=== PATIENT | female | born 1955 | race Caucasian/White ===

== ENCOUNTER 2018-07-16 08:09 | Day surgery (SDC) ==
[~2018-07-16 08:09] MED LIST: BRIMONIDINE TARTRATE 0.2% OPTH SOL OP PRN; BSS WITH EPINEPHRINE OP ONE; DEX-MOXI-KETOR OPTH INJ 1/0.5/0.4 MG/ML IO ONE; LIDOCAINE 1% 20 ML MDV ID STA; LIDOCAINE 1%/PHENYLEPHRINE 1.5% BSS (SURGERY) INTRAOCULA ONE; ZOFRAN 4 MG/2 ML IVP ONE
[2018-07-16] MEDS: CYCLOGYL 2% OPTH OP PRN ×3 (08:30→08:40)
[2018-07-16] MEDS: BETADINE OPTH PREP OP PRN ×2 (08:30→08:54)
[2018-07-16] MEDS: TETRACAINE 0.5% UNIT-DOSE OP PRN ×2 (08:30→08:54)
[2018-07-16] MEDS ORDERED: ZOFRAN 4 MG/2 ML ONE (08:40)
[2018-07-16] MEDS ORDERED: SUBLIMAZE ONE (08:40)
[2018-07-16] MEDS ORDERED: VERSED ONE (08:40)
[2018-07-16] MEDS ORDERED: DIPRIVAN 20 ML VIAL IVP ONE (08:40)
[2018-07-16 11:01] VITALS: TEMP 98.2
[2018-07-19 16:58] VITALS: BP 132/79
== END 2018-07-16 09:40 | disposition home or self-care (01) ==
LOC: SURG 08:09
PROVIDERS: ATTEND Ophthalmology
DX: H25.11 Age-related nuclear cataract, right eye (principal)

== ENCOUNTER 2018-07-30 07:10 | Day surgery (SDC) ==
[~2018-07-30 07:10] MED LIST changes: -BSS WITH EPINEPHRINE OP ONE; -DEX-MOXI-KETOR OPTH INJ 1/0.5/0.4 MG/ML IO ONE; -LIDOCAINE 1%/PHENYLEPHRINE 1.5% BSS (SURGERY) INTRAOCULA ONE
[2018-07-30] MEDS: TETRACAINE 0.5% UNIT-DOSE OP PRN ×3 (07:35→08:59)
[2018-07-30] MEDS: BETADINE OPTH PREP OP PRN ×2 (07:35→08:37)
[2018-07-30] MEDS: CYCLOGYL 2% OPTH OP PRN ×3 (07:35→07:45)
[2018-07-30] MEDS: BSS WITH EPINEPHRINE OP ONE ×2 (08:44→08:59)
[2018-07-30] MEDS: LIDOCAINE 1%/PHENYLEPHRINE 1.5% BSS (SURGERY) INTRAOCULA ONE ×2 (08:44→08:59)
[2018-07-30] MEDS: DEX-MOXI-KETOR OPTH INJ 1/0.5/0.4 MG/ML IO ONE ×2 (08:44→08:59)
[2018-07-30] MEDS ORDERED: DIPRIVAN 20 ML VIAL IVP ONE (08:54)
[2018-07-30] MEDS ORDERED: VERSED ONE (08:54)
[2018-07-30] MEDS ORDERED: SUBLIMAZE ONE (08:54)
[2018-07-30] MEDS ORDERED: ZOFRAN 4 MG/2 ML ONE (08:54)
[2018-07-30 10:44] VITALS: BP 130/76
[2018-07-30 12:59] VITALS: TEMP 97.5
== END 2018-07-30 09:40 | disposition home or self-care (01) ==
LOC: SURG 07:10
PROVIDERS: ATTEND Ophthalmology
DX: H25.12 Age-related nuclear cataract, left eye (principal)